=== PATIENT | male | born 1965 | race African-American/Black ===

== ENCOUNTER → 2024-11-12 13:55 | Outpatient (REF) | payer BC, SELFPAY | LOC: HWRAD 13:55 | PROVIDERS: ATTENDING PHYSICIAN Physician Assistant; FAMILY PHYSICIAN Student in an Organized Health Care Education/Training Program | DX: M25.69 Stiffness of other specified joint, not elsewhere classified (principal); M25.469 Effusion, unspecified knee | CPT/HCPCS: 93971 ==